=== PATIENT | male | born 1955 | race Caucasian/White ===

== ENCOUNTER → 2017-10-19 | Outpatient (CLI) | payer BC | END | disposition home or self-care (01) | LOC: LABPAT 12:20 | PROVIDERS: ATTEND Orthopaedic Surgery | DX: Z01.812 Encounter for preprocedural laboratory examination (principal) | CPT/HCPCS: 87070 ==

== ENCOUNTER 2017-11-03 08:47 | Inpatient (IN) | payer BC ==
[2017-11-02 08:22] VITALS: BMI 40.4
--- NOTE | 2017-11-02 09:35 | HP ---
HISTORY AND PHYSICAL CHIEF COMPLAINT: Left knee pain. 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 He notes pain that limits his normal function and activities. He notes he has been limping. He has tried injections and medications as well. PAST MEDICAL HISTORY: Significant for arthritis and depression. PAST SURGICAL HISTORY: Significant for right total knee arthroplasty and right total shoulder arthroplasty. CURRENT MEDICATIONS: 1. Ambien. 2. Effexor. 3. Lovastatin. ALLERGIES: He denies drug allergies. FAMILY HISTORY: Significant for cancer. SOCIAL HISTORY: Negative for current tobacco or alcohol use. REVIEW OF SYSTEMS: Sixteen-point review of systems otherwise reviewed and is noncontributory. PHYSICAL EXAMINATION: On examination, the patient is approximately 5 feet, 11 inches, 280 pounds with a BMI of 39.05. HEENT exam is nonfocal. Neck is supple. He has painless passive motion of his left hip. Active motion left knee -10 to 80 degrees of flexion. He has a large effusion. He is tender about the medial joint line. Collaterals are stable, Liana's negative, Christina's is equivocal. He has genu varum alignment. 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 His distal neurovascular exam otherwise appears intact in the left lower extremity. Previous x-rays of the left knee obtained in the office shows moderate medial and severe patellofemoral compartment narrowing. IMPRESSION: 1. Left knee moderate medial and severe patellofemoral compartment osteoarthrosis. 2. Increased body mass index. RECOMMENDATIONS: I talked to the patient at length regarding his treatment options. At this point, he is significantly limited because of pain related to his osteoarthrosis despite conservative measures. After thorough discussion, he opts to proceed with surgery. We will plan to proceed with left total knee arthroplasty. Risks and benefits were discussed at length in layman's terms. We will institute DVT prophylaxis postoperatively. The patient underwent preoperative medical evaluation by Dr. Orlando. KEILY / LINDAN: [id number] /
[~2017-11-03 08:47] MED LIST: ACETAMINOPHEN TAB 500 MG TAB PO ONE; HYDROmorphone 0.5 MG/0.5 ML SYRINGE IVP PRN; LIDOCAINE 1% 20 ML VIAL (10MG/ML) FOR IV START INTRADERMA PRN; MELOXICAM 7.5 MG TAB PO ONE; ONDANSETRON 4 MG/2 ML VIAL IVP ONE; TRANEXAMIC ACID 1,000 MG in SODIUM CHLORIDE 0.9% 50 ML IVPB ONE
[2017-11-03] MEDS: LACTATED RINGERS 1,000 ML IV SCH (09:10)
[2017-11-03] MEDS ORDERED: DEXAMETHASONE SOD PHOSPHATE 10 MG/ML 1 ML VIAL IV ONE (09:19)
[2017-11-03] MEDS ORDERED: MIDAZOLAM 2 MG/2 ML VIAL IVP ONE (09:37)
[2017-11-03] MEDS ORDERED: ROPIVACAINE 246.25 MG, EPINEPHrine 0.5 MG, KETOROLAC 30 MG, cloNIDine HCL/PF 80 MCG, WA... MISCELLANE ONE ×5 (10:10)
[2017-11-03] MEDS ORDERED: KETAMINE 10 MG/ML 20 ML VIAL ONE (11:03)
[2017-11-03] MEDS ORDERED: LABETALOL 5 MG/ML VIAL MDV ONE (11:03)
[2017-11-03] MEDS ORDERED: SODIUM CHLORIDE 0.9% 100 ML BAG ONE (11:03)
[2017-11-03] MEDS ORDERED: GLYCOPYRROLATE 0.2 MG/ML 2 ML VIAL ONE (11:03)
[2017-11-03] MEDS ORDERED: fentaNYL (PF) 50 MCG/ML 2 ML AMP ONE (11:03)
[2017-11-03] MEDS ORDERED: MIDAZOLAM 2 MG/2 ML VIAL ONE (11:03)
[2017-11-03] MEDS ORDERED: TRANEXAMIC ACID 1,000 MG/10 ML VIAL ONE (11:03)
[2017-11-03] MEDS ORDERED: diphenhydrAMINE 50 MG/ML 1 ML VIAL ONE (11:03)
[2017-11-03] MEDS ORDERED: PROPOFOL 10 MG/ML 20 ML VIAL IV ONE (11:03)
[2017-11-03] MEDS ORDERED: ROPIVACAINE 1,100 MG, SODIUM CHLORIDE 0.9% 330 ML MISCELLANE PRN ×2 (11:07)
[2017-11-03] MEDS ORDERED: ceFAZolin 1,000 MG in SODIUM CHLORIDE 0.9% 1,000 ML IRRIGATION ONE ×2 (11:49→12:13)
[2017-11-03] MEDS ORDERED: LACTATED RINGERS 1,000 ML IV ONE (12:00)
[2017-11-03] MEDS ORDERED: ONDANSETRON 4 MG/2 ML VIAL IVP PRN (13:21)
[2017-11-03] MEDS ORDERED: HYDROmorphone 4 MG/ML 1 ML SYRINGE IVP PRN ×2 (13:21)
[2017-11-03] MEDS ORDERED: NALOXONE 0.4 MG/ML 1 ML VIAL IV PRN (13:21)
[2017-11-03] MEDS ORDERED: MAGNESIUM HYDROXIDE 2,400 MG/10 ML CUP PO PRN (13:21)
[2017-11-03] MEDS ORDERED: ACETAMINOPHEN TAB 325 MG TAB PO PRN (13:21)
[2017-11-03] MEDS ORDERED: HYDROcodone/APAP 7.5-325MG 1 EACH TAB PO PRN ×2 (13:21)
--- NOTE | 2017-11-03 13:34 | P.OP ---
Date of Procedure: 11/03/17 Preoperative Diagnosis: Left knee severe tricompartmental osteoarthrosis Postoperative Diagnosis: Same Procedure(s) Performed: Left total knee [id number]-[id number] retaining Implants: Depuy Attune size 7 cemented femoral component, size 6 cemented tibial component , 9 mm articular surface, 38 mm cemented patellar component. This is a cruciate retaining implant. Anesthesia: regional, local, spinal Surgeon: Talat Mullen Earth Burner #1: Jose Manuel Hand Estimated Blood Loss (ml): 100 Pathology: other (Bone fragments) Condition: stable Disposition: PACU Indications for Procedure: The patient's a 62-year-old male who presents with progressive left knee pain secondary to osteoarthrosis despite conservative measures. A discussion of the risks and benefits of operative intervention versus continued conservative measures was made with patient. He opted to proceed with surgery. Operative risks to include infection, neurovascular injury, development of blood clots, possible component loosening, possible component failure need for subsequent procedures was discussed. Informed consent was obtained. Operative Findings: As below Description of Procedure: The patient was brought to the operating room, and after induction of spinal anesthesia the left lower extremity was prepped and draped in a normal fashion. The tourniquet was inflated to 270 mmHg. A longitudinal incision extending 3 finger breaths above the superior pole of the patella extending to the medial aspect the tibial tubercle was then made. The skin and subcutaneous tissues were divided sharply. Electrocautery was used for hemostasis. A medial parapatellar arthrotomy was then performed. A portion of the retropatellar fat pad was excised sharply. The medial soft tissues to include the superficial and deep portions of the medial collateral ligament as well as the medial hamstring tendons were elevated subperiosteally. The patella was everted and the knee flexed. The anterior cruciate ligament was sacrificed. A starting hole was made in the distal femur 1 cm anterior the posterior cruciate ligament origin. An intramedullary femoral guide was gently inserted planning on 5 valgus distal cut with 9 mm distal resection. The cutting block was pinned in place. The distal cut was then made. The posterior referencing sizing guide was utilized. I felt size 7 was most appropriate. 3 of external rotation was built into the system and verified off the trans-epicondylar axis and the posterior condyles. The cutting block was pinned in place. The anterior, posterior, and chamfer cuts were then made. The bone fragments were removed. The notch cut was then made utilizing the appropriate saw. The trial size 7 femoral component was placed and was fully seated. There is good anterior to posterior along with medial to lateral fit. The distal peg holes were drilled. The trial component was then removed. Attention was then paid towards preparing the proximal tibia. An extra measure tibial guide was utilized in line with the tibial shaft and second metatarsal distally. I planned on 2 mm medial resection. A 7 posterior slope cutting block was utilized. The cutting block was pinned in place. The posterior cruciate ligament was protected with a retractor. The proximal tibial cut was then made. The bone was removed in one fragment. The remnants of the medial lateral menisci were excised at the capsular junction with electrocautery. The tibia sized most appropriately a size 6. The trial femoral and tibial components were placed along with a 9 mm articular surface. I was able to obtain full flexion and extension with good stability with varus valgus stress. After several flexion and extension cycles, the tibial rotation was marked with electrocautery in line with the medial one third of the tibial tubercle. Attention was then paid towards preparing the patella. A patella reamer was utilized taking this down to 14 mm of bone stock. A good flush cut was made. The patella sized most appropriately 38 mm per the peg holes were drilled. The trial components placed. The knee was taken through range of motion. I had good patellofemoral tracking with no hands technique. The trial components were then removed. The posterior osteophytes off the distal femur were carefully removed with a curved osteotome. The tibia was prepared in the appropriate rotation with appropriate drill and keel punch. The flexion and extension gaps were checked and felt to be symmetric. The posterior soft tissues were injected with ropivacaine. The bony surfaces were prepared with pulsatile lavage and then dried. The tibial component was cemented in placed and was fully seated. Excess cement was removed. The femoral component was cemented place and was fully seated. Excess cement was removed. The trial 9 mm articular surface was placed and the knee was put in full extension. The patella component was cemented in placed and was fully seated. After the cement had sufficiently hardened, the knee was again taken through range of motion and was felt to be stable in flexion and extension with varus and valgus stress. The trial articular surface was removed and the final 9 mm articular surface was placed and was fully seated. Care was taken to avoid any soft tissue interposition. Pulsatile lavage was again utilized. The medial parapatellar arthrotomy was closed with #2 Ethibond suture. The tourniquet was deflated with approximately 70 minutes total tourniquet time. Final hemostasis was obtained with electrocautery. The second dose of IV TXA was given. A deep drain was placed exiting laterally. The subcutaneous tissues were reapproximated with interrupted 2-0 Vicryl sutures. The skin was reprepped with 3-0 subcuticular strata fix suture. Skin tape and adhesive was applied. A sterile dressing was applied. The patient was awoken from sedation and transferred to the recovery room in good condition. Blood loss was estimated at 100 mL. No complications were incurred. Sponge and needle counts were correct at the end of the case.
--- NOTE | 2017-11-03 14:57 | XR ---
EXAMINATION TYPE: XR knee limited LT DATE OF EXAM: 11/03/2017 CLINICAL HISTORY: Postoperative evaluation Two views of the left knee are submitted. Identified are changes of total knee arthroplasty with fem oral and tibial components appearing well seated. Postsurgical soft tissue changes are noted. Align ment is anatomic.
--- NOTE | 2017-11-03 16:23 | P.ONQ ---
Anesthesiology Proc Note - PNB - Peripheral Nerve Block Performed Left Adductor Canal Infusion Indication: Acute Post-Operative Pain, Dx/Pain Location (Left Knee) Specifically requested for management of pain by : Talat Mullen Sedation Type: Sedate with meaningful contact maintained Preparation: Sterile Prep Position: Supine Catheter: Indwelling Needle Types: Other (see comment) (Pajunk) Needle Size: 100mm (4") Needle Gauge: 21 Technique: Ultrasound Injectate: 0.5% Ropivacaine (see comment for volume) (30cc) Blood Aspirated: No Pain Paresthesia on Injection Noted: No Resistance on Injection: Normal Events: Uneventful and Well Tolerated
[2017-11-03] MEDS: traMADol 50 MG TAB PO SCH ×2 (18:32→22:19)
[2017-11-03 20:08] LABS: Glucose,Whole Blood 157 mg/dL (75-99)
[2017-11-03] MEDS: SENNOSIDES-DOCUSATE SODIUM 1 EACH TAB PO SCH (20:08)
[2017-11-03] MEDS: INSULIN ASPART 100 UNIT/ML 1 ML 10 ML VIAL SQ SCH (22:20)
[2017-11-03] MEDS: ZOLPIDEM 10 MG TAB PO SCH (22:20)
--- NOTE | 2017-11-04 01:09 | CONS ---
CONSULTATION DATE OF SERVICE: 11/03/17 REASON FOR CONSULTATION: Advice regarding depression and other medical issues requested by Dr. Mullen. HISTORY OF PRESENT ILLNESS: This 62-year-old gentleman with a past medical history of multiple medical problems including history of DJD, history of sleep apnea, history of depression being followed by Dr. Cobb in the outpatient setting underwent a left total knee arthroplasty by Dr. Mullen. The patient tolerated the procedure well. The blood sugar was only slightly elevated. There is no history of chest pain. No palpitations. No history of headache, loss of consciousness, seizures. No nausea or vomiting, fever, rigors or chills at this time. PAST MEDICAL HISTORY: 1. History of DJD. 2. History of sleep apnea. 3. History of orthopedic surgery. 4. History of depression. MEDICATIONS ARE: 1. Ambien 10 mg q.h.s. 2. Effexor XR 300 mg q.a.m. 3. Xarelto 10 mg daily. ALLERGIES: None. FAMILY HISTORY: History of cancer in the family. SOCIAL HISTORY: No history of smoking. No history of alcohol. REVIEW OF SYSTEMS: ENT: No diminished hearing or diminished vision. CARDIOVASCULAR: No angina or palpitations. Respiratory: No cough or hemoptysis. GI no nausea or vomiting. no dysuria or hematuria. Nervous system: No numbness, weakness. Allergy/Immunology: No asthma or hayfever. Musculoskeletal: As mentioned earlier. Hematology/Oncology: No history of anemia. Endocrine: As mentioned earlier. Constitutional: As mentioned earlier. Dermatology: Negative. Rheumatology: Negative. Psychiatric: As mentioned earlier. PHYSICAL EXAMINATION: Alert and oriented x3. Pulse 87, blood pressure 128/62, respirations 18, temperature 97.8, pulse ox 92% on room air. HEENT: Conjunctivae normal. Neck: No jugular venous distention. Cardiovascular: S1, S2 muffled. Respiratory: Breath sounds diminished in the bases. No rhonchi and no crackles. ABDOMEN: Soft, nontender. No mass palpable. Legs status post surgery. Nervous system: Higher functions as mentioned earlier, moves all 4 limbs, no focal motor or sensory deficits. Lymphatics: No lymph nodes palpable in the neck, axillae or groin. Skin: No ulcer, rash or bleeding. Joints noted. LABS: Glucose 157, otherwise other labs done, labs not available. ASSESSMENT: 1. Status post left total knee joint arthroplasty. 2. Increased random blood sugar. 3. History of depression. 4. History of degenerative joint disease. 5. History of sleep apnea, on CPAP. RECOMMENDATIONS AND DISCUSSION: In this 62-year-old gentleman who presented with multiple medical issues, we will monitor the patient closely. Continue the current medications. Symptomatic treatment. I recommend resume the home medications and as well as I would also recommend Accu- Cheks a.c. and at bedtime and hemoglobin A1c as well. Otherwise pain medications. DVT prophylaxis. Incentive spirometry. We will follow the patient closely. The patient may be asked to follow up with primary physician closely after discharge. Thank you Dr. Mullen for letting us participate in the care of this patient. KEILY / LINDAN: [id number] /
[2017-11-04 07:21] LABS: Glucose,Whole Blood 106 mg/dL (75-99)
[2017-11-04 07:41] LABS: Basophils % (A) 0 %; Eosinophils % (A) 0 %; HGB 12.9 gm/dL (13.0-17.5); Lymphocytes # (A) 1.5 k/uL (1.0-4.8); Lymphocytes % (A) 13 %; MCH 31.8 pg (25.0-35.0); MCHC 33.2 g/dL (31.0-37.0); MCV 95.8 fL (80.0-100.0); Mean Platelet Volume 6.7; Monocytes # (A) 0.6 k/uL (0-1.0); Monocytes % (A) 5 %; Neutrophils # (A) 9.1 k/uL (1.3-7.7); Neutrophils % (A) 80 %; Platelet Count 211 k/uL (150-450); RBC 4.07 m/uL (4.30-5.90); RDW 13.5 % (11.5-15.5); WBC 11.4 k/uL (3.8-10.6)
[2017-11-04 07:42] LABS: Anion Gap 11 mmol/L; Blood Urea Nitrogen 25 mg/dL (9-20); Calcium 8.8 mg/dL (8.4-10.2); Carbon Dioxide 23 mmol/L (22-30); Chloride 106 mmol/L (98-107); Glucose 105 mg/dL (74-99); Potassium 4.3 mmol/L (3.5-5.1); Sodium 140 mmol/L (137-145)
[2017-11-04] MEDS: INSULIN ASPART 100 UNIT/ML 1 ML 10 ML VIAL SQ SCH ×4 (08:32→21:01)
[2017-11-04] MEDS: LACTATED RINGERS 1,000 ML IV SCH ×2 (08:56→22:50)
[2017-11-04] MEDS: RIVAROXABAN 10 MG TAB PO SCH (09:09)
[2017-11-04] MEDS: VENLAFAXINE HCL ER 150 MG CAP PO SCH (09:09)
[2017-11-04] MEDS: FAMOTIDINE 20 MG TAB PO SCH (09:09)
[2017-11-04] MEDS: traMADol 50 MG TAB PO SCH ×4 (09:09→22:48)
--- NOTE | 2017-11-04 10:49 | P.PN ---
Progress Note - Text Postoperative day # 1 status post total knee arthroplasty, on adductor canal perineural catheter placed for postoperative analgesia. Ropivacaine 0.2% 8 mL per hour through ON-Q pump continuous infusion. Pain is well controlled. On visual analog scale 4/10 Patient is taking PRN oral pain medications. Catheter site: Looks Ok. There is no erythema or tenderness. Continue with the current pain management plan and will follow.
[2017-11-04 11:02] LABS: Glucose,Whole Blood 125 mg/dL (75-99)
--- NOTE | 2017-11-04 12:25 | P.PN ---
Subjective Progress Note Date: 11/04/17 Principal diagnosis: Status post left total knee arthroplasty Patient seen today resting in his hospital chair, he appears comfortable. He denies any chest pain, shortness of breath, fever or chills, abdominal pain. Objective - Vital Signs Vital signs: Vital Signs Temp 98.6 F 11/04/17 07:00 Pulse 81 11/04/17 07:00 Resp 18 11/04/17 07:00 BP 137/70 11/04/17 07:00 Pulse Ox 93 L 11/04/17 07:00 Intake & Output 11/03/17 11/04/17 11/04/17 18:59 06:59 18:59 Intake Total 1452 2100 700 Output Total 550 175 450 Balance 902 1925 250 Weight 131.542 kg Intake: IV 1452 Intake, IV Titration 900 Amount Lactated Ringers 1,000 ml 800 @ 50 mls/hr IV .Q20H BAN Rx#:[id number] ceFAZolin 3 gm In Sodium 100 Chloride 0.9% 50 ml @ 50 mls/hr IVPB Q8HR BAN Rx#: [id number] Oral 1200 700 Output: Urine 450 175 450 Uretheral (Marquez) 450 Estimated Blood Loss 100 Other: Voiding Method Indwelling Catheter Indwelling Catheter Indwelling Catheter - Exam Left lower extremity: Incision is clean, dry, and intact. The prineo tape is in good condition. There is minimal soft tissue swelling and ecchymosis surrounding the medial and lateral aspects of the incision. Calf is soft, no tenderness with palpation. Plantar flexion, dorsiflexion, EHL, FHL are intact. Sensory exam to light touch throughout the extremity is intact, dorsal pedis pulses 2+. - Labs CBC & Chem 7: 11/04/17 06:53 11/04/17 06:53 Labs: Abnormal Lab Results - Last 24 Hours (Table) 11/03/17 11/04/17 11/04/17 Range/Units 20:06 06:53 06:53 WBC 11.4 H (3.8-10.6) k/uL RBC 4.07 L (4.30-5.90) m/uL Hgb 12.9 L (13.0-17.5) gm/dL Neutrophils # 9.1 H (1.3-7.7) k/uL BUN 25 H (9-20) mg/dL Glucose 105 H (74-99) mg/dL POC Glucose (mg/dL) 157 H (75-99) mg/dL 11/04/17 11/04/17 Range/Units 07:16 10:45 WBC (3.8-10.6) k/uL RBC (4.30-5.90) m/uL Hgb (13.0-17.5) gm/dL Neutrophils # (1.3-7.7) k/uL BUN (9-20) mg/dL Glucose (74-99) mg/dL POC Glucose (mg/dL) 106 H 125 H (75-99) mg/dL Assessment and Plan Plan: Assessment: 1. Postop day #1 status post left total knee arthroplasty Plan: 1. Pain control, continue use of oral medication 2. Continue work physical therapy 3. GI and DVT prophylaxis, continue Xarelto 10 mg 4. Daily dressing changes/ice and elevate 5. Medical recommendations 6. Discharge planning: Patient likely to be discharged home tomorrow Time with Patient: Less than 30
--- NOTE | 2017-11-04 13:22 | PN ---
PROGRESS NOTE DATE OF SERVICE: 11/04/2017 This 62-year-old gentleman who was admitted after left total knee arthroplasty improving significantly. No chest pain. No palpitations. No fever. PHYSICAL EXAMINATION: On exam, alert and oriented x3. Pulse 81, blood pressure 137/70, respiration 18, temperature 98.6, pulse ox 93% on CPAP. HEENT: Conjunctivae normal. NECK: No jugular venous distention. CARDIOVASCULAR: S1 and S2 muffled. RESPIRATORY: Breath sounds diminished at the bases. No rhonchi, no crackles. ABDOMEN: Soft, obese, nontender. LEGS: Status post surgery. NERVOUS SYSTEM: No focal deficits. LABS: Accu-Cheks 106, 125. WBC 11.4, hemoglobin 12.9. Hemoglobin A1c is not available. ASSESSMENT: 1. Status post left total knee arthroplasty. 2. Increased random blood sugar. 3. History of depression. 4. History of degenerative joint disease. 5. History of sleep apnea on CPAP. 6. Obesity with body mass index of 40.4. RECOMMENDATIONS AND DISCUSSION: Recommend to continue current medications. Continue symptomatic treatment. I would recommend to monitor blood sugars closely. Resume the rest of the medications. DVT prophylaxis. Hemoglobin A1c. Otherwise dietary evaluation. Further recommendations to follow. Closely follow with Orthopedic Surgery. MMODL / IJN: [id number] /
[2017-11-04 14:11] LABS: Hemoglobin A1C 4.8 % (4.0-6.0)
[2017-11-04] MEDS ORDERED: HYDROmorphone 2 MG TAB PO PRN (15:37)
[2017-11-04] MEDS ORDERED: HYDROmorphone 4 MG TABLET PO PRN (15:38)
[2017-11-04 17:15] LABS: Glucose,Whole Blood 117 mg/dL (75-99)
[2017-11-04 19:43] LABS: Glucose,Whole Blood 134 mg/dL (75-99)
[2017-11-04] MEDS: SENNOSIDES-DOCUSATE SODIUM 1 EACH TAB PO SCH (21:02)
[2017-11-04] MEDS: ZOLPIDEM 10 MG TAB PO SCH (22:48)
[2017-11-05 07:17] LABS: Glucose,Whole Blood 103 mg/dL (75-99)
[2017-11-05] MEDS: INSULIN ASPART 100 UNIT/ML 1 ML 10 ML VIAL SQ SCH ×2 (08:04→11:07)
[2017-11-05 08:21] VITALS: BP 151/69; PULSE 87; RESP 15; TEMP 98.5
[2017-11-05] MEDS: VENLAFAXINE HCL ER 150 MG CAP PO SCH (08:51)
[2017-11-05] MEDS: FAMOTIDINE 20 MG TAB PO SCH (08:51)
[2017-11-05] MEDS: RIVAROXABAN 10 MG TAB PO SCH (08:51)
[2017-11-05] MEDS: traMADol 50 MG TAB PO SCH ×2 (08:51→12:15)
[2017-11-05 11:06] LABS: Glucose,Whole Blood 103 mg/dL (75-99)
--- NOTE | 2017-11-05 11:36 | P.PN ---
Subjective Progress Note Date: 11/05/17 Principal diagnosis: Status post left total knee arthroplasty Patient seen today resting in his hospital chair, he appears comfortable. He denies any chest pain, shortness of breath, fever or chills, abdominal pain. Objective - Vital Signs Vital signs: Vital Signs Temp 98.5 F 11/05/17 07:00 Pulse 87 11/05/17 07:00 Resp 15 11/05/17 07:00 BP 151/69 11/05/17 07:00 Pulse Ox 95 11/05/17 07:00 Intake & Output 11/04/17 11/05/17 11/05/17 18:59 06:59 18:59 Intake Total 1740 500 240 Output Total 1250 300 Balance 490 200 240 Intake: Oral 1740 500 240 Output: Urine 1250 300 Straight 800 Uretheral (Marquez) 450 Other: Voiding Method Indwelling Catheter Toilet Toilet - Exam Left lower extremity: Incision is clean, dry, and intact. The prineo tape is in good condition. There is minimal soft tissue swelling and ecchymosis surrounding the medial and lateral aspects of the incision. Calf is soft, no tenderness with palpation. Plantar flexion, dorsiflexion, EHL, FHL are intact. Sensory exam to light touch throughout the extremity is intact, dorsal pedis pulses 2+. - Labs CBC & Chem 7: 11/04/17 06:53 11/04/17 06:53 Labs: Abnormal Lab Results - Last 24 Hours (Table) 11/04/17 11/04/17 11/05/17 Range/Units 17:13 19:36 07:14 POC Glucose (mg/dL) 117 H 134 H 103 H (75-99) mg/dL 11/05/17 Range/Units 11:04 POC Glucose (mg/dL) 103 H (75-99) mg/dL Assessment and Plan Plan: Assessment: 1. Postop day #2 status post left total knee arthroplasty Plan: 1. Pain control, continue use of oral medication 2. Continue work physical therapy 3. GI and DVT prophylaxis, continue Xarelto 10 mg 4. Daily dressing changes/ice and elevate 5. Medical recommendations 6. Discharge planning: Patient will be discharged home today Time with Patient: Less than 30
--- NOTE | 2017-11-05 11:43 | P.DS ---
Providers Date of admission: 11/03/17 08:47 Expected date of discharge: 11/05/17 Attending physician: Talat Mullen Consults: 11/03/17 13:21 Consult Physician Routine Consulting Provider: Columba Marrufo Consult Reason/Comments: Medical management Do you want consulting provider notified?: Yes Primary care physician: [place] Hospital Course: Date of admission: 11/03/2017 Date of discharge: 11/05/2017 Admission diagnosis: Status post left total knee arthroplasty Discharge diagnosis: Same Attending physician: Dr. Mullen Surgical procedures: Left total knee arthroplasty Brief history: Patient is a 62-year-old male with a history of progressive primary left knee osteoarthritis. At this point patient has failed conservative treatment measures and has opted to proceed with a elective left total knee arthroplasty. Hospital course: Details of patient's surgery can be found in operative report. Patient tolerated the procedure well and was subsequently transported to orthopedic floor. Patient's orthopeidc and medical care was provided daily. Patient had daily laboratory tests performed for evaluation of overall blood counts. Patient had daily physical therapy to include strengthening range of motion as well as education with walker ambulation. Patient had daily CPM usage as part of their physical therapy program. Patient was treated with Xarelto for their postoperative DVT prophylaxis during their inpatient stay. Patient was noted to have a relatively uneventful postoperative course. Patient reported satisfactory pain control with oral pain medications by postoperative day 0. Patient showed satisfactory progress with physical therapy. Patient moved steadily through the program and had no difficulty meeting the goals by postoperative day 2. Given patient's otherwise satisfactory course and having met physical therapy goals, plan is to discharge patient home on postoperative day 2. Discharge condition/disposition: Patient will be discharged home in stable condition. Discharge medications: Instructions are given on resumption of patient's normal daily medications per primary care recommendation, in addition patient will be prescribed Chacon 7.5 mg/325 mg, tramadol 50 mg, Colace 100 mg, Xarelto 10 mg Discharge instructions: 1. Wound care and infection precautions, [\keep incision dry and covered while showering, no lotions, creams, moisturizers. No soaking, tubs, pools, hottubs. Do not scrub over the incision. 2. Weight-bear as tolerated with walker / cane until follow-up. 3. Ice and elevate when necessary. Do not exceed 20 minutes per hour with ice pack. 4. Utilize compression sleeve until seen at first follow up appointment. 5. Visiting nursing care. 6. Home physical therapy including home CPM. 7. Pain meds and anticoagulants per prescription. 8. Pain medication has potential to cause constipation. Increase oral fluid and fiber intake. Contact primary care provider if you have not had a bowel movement within 48 hours after discharge 9. No anti-inflammatory medication until discussed at first post operative visit, this including Motrin, Aleve, Mobic, Diclofenac. 10. Follow up in office at 2 weeks postop with Shukri Hand PA-C 11. Follow up with your primary care doctor 7-10 days after discharge. 12. Contact [facility] with any questions, . Procedures: Left total knee arthroplasty Patient Condition at Discharge: Good Plan - Discharge Summary Discharge Rx Participant: Yes New Discharge Prescriptions: New Rivaroxaban [Xarelto] 10 mg PO DAILY #12 tab Docusate [Colace] 100 mg PO DAILY #30 capsule HYDROcodone/APAP 7.5-325MG [Chacon 7.5] 1 - 2 each PO Q6HR PRN #40 tab PRN Reason: Pain traMADol HCl [Ultram] 50 mg PO Q6H PRN #30 tab PRN Reason: Pain No Action Zolpidem Tartrate [Ambien] 10 mg PO HS Venlafaxine HCl [Effexor XR] 300 mg PO QAM Discharge Medication List Zolpidem Tartrate [Ambien] 10 mg PO HS 11/02/17 [History] Rivaroxaban [Xarelto] 10 mg PO DAILY #12 tab 11/03/17 [Rx] Venlafaxine HCl [Effexor XR] 300 mg PO QAM 11/03/17 [History] Docusate [Colace] 100 mg PO DAILY #30 capsule 11/05/17 [Rx] HYDROcodone/APAP 7.5-325MG [Chacon 7.5] 1 - 2 each PO Q6HR PRN #40 tab 11/05/17 [ Rx] traMADol HCl [Ultram] 50 mg PO Q6H PRN #30 tab 11/05/17 [Rx] Follow up Appointment(s)/Referral(s): [facility], [NON-STAFF] - Jose Manuel Hand PAC [PHYSICIAN PRN PHYSICAL THERAPIST] - 2 Weeks Activity/Diet/Wound Care/Special Instructions: Orthopedic Discharge Instructions: 1. Wound care and infection precautions, keep incision dry and covered while showering, no lotions, creams, moisturizers. No soaking, pools, hot tubs. Do not scrub over incision. 2. Weight-bear as tolerated with walker / cane until follow-up. 3. Ice and elevate when necessary. Do not exceed 20 minutes per hour with ice pack. 4. Utilize compression sleeve until seen at first follow up appointment. 5. Visiting nursing care. 6. Home physical therapy including home CPM. 7. Pain meds and anticoagulants per prescription. 8. Pain medication has potential to cause constipation. Increase oral fluid and fiber intake. Contact primary care provider if you have not had a bowel movement within 48 hours after discharge. 9. No anti-inflammatory medication until discussed at first post operative visit, this including Motrin, Aleve, Mobic, Diclofenac. 10. Follow up in office at 2 weeks postop with Shukri Hand PA-C 11. Follow up with your primary care doctor 7-10 days after discharge. 12. Contact [facility] with any questions, . Discharge Disposition: HOME WITH HOME HEALTH SERVICES
--- NOTE | 2017-11-05 13:21 | PN ---
PROGRESS NOTE DATE OF SERVICE: 11/05/2017 This 62-year-old gentleman was admitted with left knee total arthroplasty. Is improving significantly. No chest pain. No palpitations. No fever. Blood sugars are mildly elevated. PHYSICAL EXAMINATION: On exam, alert and oriented x3, pulse 87, blood pressure 151/69, respiration 15, temperature 98.4, pulse ox 94% on CPAP. HEENT: Conjunctivae normal. NECK: No jugular venous distention. CARDIOVASCULAR: S1 and S2 muffled. RESPIRATORY: Breath sounds diminished at the bases. No rhonchi, no crackles. ABDOMEN: Soft, nontender. LEGS: Status post surgery. NERVOUS SYSTEM: No focal deficits. LABS: Accu-Cheks 103. ASSESSMENT: 1. Status post left total knee arthroplasty. 2. Increased random blood sugar with no evidence of diabetes mellitus with normal hemoglobin A1c. 3. History of depression. 4. History of degenerative joint disease. 5. Sleep apnea, on CPAP. 6. Obesity with body mass index of 40.4. RECOMMENDATIONS AND DISCUSSION: Recommend to continue current medications, continue symptomatic treatment. I would recommend to monitor blood sugars closely. Closely follow with primary physician in the outpatient setting. The rest of the recommendations per Orthopedic Surgery. Further recommendations to follow. MMODL / IJN: [id number] /
== END 2017-11-05 14:10 | disposition home health service (06) | DRG 470 ==
LOC: 2ORMAIN 08:47 → 3SUR 15:41
PROVIDERS: ADMIT Orthopaedic Surgery; ATTEND Orthopaedic Surgery
PROC: 0SRD0J9 Replacement of Left Knee Joint with Synthetic Substitute, Cemented, Open Approach (ICD-10-PCS; principal; 2017-11-03 10:45)
DX: M17.12 Unilateral primary osteoarthritis, left knee (principal); Z68.41 Body mass index [BMI] 40.0-44.9, adult; E66.9 Obesity, unspecified; G47.30 Sleep apnea, unspecified; F51.04 Psychophysiologic insomnia; F32.9 Major depressive disorder, single episode, unspecified; Z79.899 Other long term (current) drug therapy; Z91.81 History of falling; Z96.651 Presence of right artificial knee joint; Z96.611 Presence of right artificial shoulder joint
CPT/HCPCS: 80048; 83036; 85025; 88300